=== PATIENT | male | born 1955 | race Caucasian/White ===

== ENCOUNTER 2024-09-22 20:07 | Emergency (ER) | payer MEDICARE ==
[~2024-09-22] VITALS: Ht 185.4 cm; Wt 108.9 kg
[2024-09-22] MEDS: acetaMINOPHEN 500 MG TABLET PO ONE (20:22)
[2024-09-22] MEDS: teTANUS/diphthERIA TOXOID [ADULT] 0.5 ML VIAL IM ONE (20:30)
--- NOTE | 2024-09-22 21:02 | HMCIMG ---
CT HEAD/BRAIN W/O CONTRAST INDICATION: fall TECHNIQUE: CT HEAD/BRAIN W/O CONTRAST. CT was performed with one or more of the following dose reduction techniques: Automated exposure control, adjustment of the mA and/or kV according to the patient's size, or use of the iterative reconstruction technique. Comparison: None FINDINGS: Cerebral atrophy seen. Nonspecific periventricular and subcortical white matters changes are noted likely representing small vessel ischemic changes. No midline shift or herniation. No extra axial collection. No acute intracranial bleed. There is a thickened left maxillary and bilateral ethmoid sinuses. Left periorbital soft tissue swelling is noted. IMPRESSION: Diffuse atrophy. No acute intracranial bleed is seen. Nonspecific white matter changes Left periorbital soft tissue swelling.
[2024-09-22] MEDS ORDERED: CLIN-141 PO (21:45)
--- NOTE | 2024-09-22 21:46 | ERN ---
General Chief Complaint: Head Injury Stated Complaint: FALL, HEAD INJURY Time Seen by MD: 20:09 Source: patient History of Present Illness Initial Comments 69-year-old male coming in to be evaluated after he had a mechanical fall earlier today. He states that walking out of a bar he tripped and landed on the floor hitting himself in the left upper eyelid with the glasses. He states he did not lose consciousness. Allergies: Coded Allergies: Penicillins (Unverified Allergy, Unknown, 09/22/24) Past Medical History Past Medical History: TIA Past Surgical History: None ROS Dictation CONSTITUTIONAL: No chills, no fever, no weakness, no diaphoresis, no malaise. HEAD/FACE: No signs of trauma. EENT: No eye pain, no blurred vision, no tearing, no double vision, no ear pain, no ear discharge, no nose pain, no nasal congestion, no throat pain, no throat swelling, no mouth pain. RESPIRATORY: No cough, no orthopnea, no SOB, no stridor, no wheezing. CARDIOVASCULAR: No chest pain, no edema, no palpitations, no syncope. GASTROINTESTINAL/ABDOMINAL: No abdominal pain, no constipation, no diarrhea, no nausea, no vomiting. GENITOURINARY: No abnormal discharge, no dysuria, no frequent urination, no hematuria. No complaints of pain in the genitals. MUSCULOSKELETAL: No back pain, no gout, no joint pain, no joint swelling, no muscle pain, no muscle stiffness, no neck pain. INTEGUMENTARY: No change in color, no change in hair/nails, no dryness, lesion, no lumps, no rash. NEUROLOGICAL/PSYCH: No anxiety, not depressed, no emotional problem, no headache, no numbness, no pre-existing deficit, no history of seizures, no tremors, no weakness. HEMATOLOGIC/LYMPHATIC: Not anemic, no history of blood clots, no apparent bleeding, no bruising, glands not swollen. All Systems Negative, Except as Noted. Physical Exam Physical Exam Dictation VITAL SIGNS: Reviewed. GENERAL APPEARANCE: Alert, oriented x3, no acute distress, obese. HEAD AND FACE: Non-traumatic. EYES: PERRL, pink conjunctivas, eyelid no trauma, anterior chamber clear. EARS: Pinnas intact and no signs of trauma or erythema. Ear canals clear and no discharge. TMs no erythema. NOSE: No discharge, no bleeding. OROPHARYNX: Mouth normal, teeth no caries, tongue pink. Pharynx clear, no erythema. Tonsils no exudates, no abscesses noted. Mucous membrane moist. NECK: Supple, non-tender, no thyromegaly, no masses, no JVD, no bruits. BREAST: Deferred. CHEST: No tenderness, no crepitus, no paradoxical movement, no retractions. LUNGS: Clear, well-ventilated, symmetric, no rales, no wheezing, no rhonchi, no stridor, good breath sounds bilaterally. HEART: Regular rate, regular rhythm, no murmur, no gallops. VASCULAR: No peripheral edema. ABDOMEN: Soft, positive bowel sounds, nondistended, no guarding, nontender, no rebound, no masses no hepatomegaly, no splenomegaly, no Solomon's sign, no hernias. RECTAL: Deferred. GENITAL: Deferred. NEUROLOGICAL: Normal speech, gross motor function intact, gross sensory function intact. MUSCULOSKELETAL: Neck nontender, full range of motion, back nontender, full range of motion. EXTREMITIES: Nontender, full range of motion. SKIN: Color pink, dry, no turgor, no rash, lacerations 4 cm left upper eyelid, no abrasions, no contusions. LYMPHATICS: Deferred. Results Laboratory and Microbiology Labs Reviewed?: Yes EKG/XRAY/US/CT/MRI CT Scan Comment [id number] [id number] IMAGING REPORT Signed PATIENT: CAM OROURKE JR MR#: [id number] : 1955 SEX: M AGE: 69 LOCATION: [facility] ORDER 15 STATUS: [facility] REPORT#: [id number] SERVICE 11 REASON: fall ORDERING PHYSICIAN: RENAE CHA MD PROCEDURE: HEAD WO - CT HEAD/BRAIN W/O CONTRAST CT HEAD/BRAIN W/O CONTRAST INDICATION: fall TECHNIQUE: CT HEAD/BRAIN W/O CONTRAST. CT was performed with one or more of the following dose reduction techniques: Automated exposure control, adjustment of the mA and/or kV according to the patient's size, or use of the iterative reconstruction technique. Comparison: None FINDINGS: Cerebral atrophy seen. Nonspecific periventricular and subcortical white matters changes are noted likely representing small vessel ischemic changes. No midline shift or herniation. No extra axial collection. No acute intracranial bleed. There is a thickened left maxillary and bilateral ethmoid sinuses. Left periorbital soft tissue swelling is noted. IMPRESSION: Diffuse atrophy. No acute intracranial bleed is seen. Nonspecific white matter changes Left periorbital soft tissue swelling. DICTATED BY: PAULA ACEVEDO MD DATE: 09/22/242058 ELECTRONICALLY SIGNED BY: PAULA ACEVEDO MD DATE: 09/22/242101 [facility] MDM: Differential diagnosis: Fall, mechanical fall, left upper eyelid laceration, Patient is a 69-year-old male coming in to be evaluated after he had a mechanical fall. States he landed on the floor and caused a left upper eyelid laceration due to the glasses he was wearing. Laceration was anesthetized and cleaned using lidocaine 1% 5 mL. Good anesthesia achieved. Using Ethilon 5-0 three vertical mattress sutures were placed and three simple interrupted sutures placed. Good approximation hemostasis obtained. Patient will be discharged in stable condition. ED Course Orders Procedure Category Date Status Time Tetanus,Diphtheria PHA 09/22/24 Complete Tox [Adult] (Diphther 20:30 Acetaminophen 500mg PHA 09/22/24 Complete Tab (Tylenol 500mg T 20:30 Ct Head/Brain W/O CT 09/22/24 Resulted Contrast 20:12 Lidocaine Hcl 1% 20ml PHA 09/22/24 Complete Vial (Lidocaine Hc 21:25 Current Medications Medications (Trade) Dose Ordered Sig/Yvonne Route PRN Reason Start Time Stop Time Status Last Admin Dose Admin Acetaminophen (TYLenol 500MG TAB) 500 mg ONCE ONCE PO 09/22/24 20:30 09/22/24 20:31 DC 09/22/24 20:22 Lidocaine HCl (Lidocaine HCl 1% 20ml Vial) 20 ml STK-MED ONCE .ROUTE 09/22/24 21:25 09/22/24 21:25 DC Tetanus/ Diphtheria Toxoids Adsorbed (DiphthERIA-teTANUS TOXOID [ADULT]/ DECAVAC) 0.5 ml ONCE ONCE IM 09/22/24 20:30 09/22/24 20:31 DC 09/22/24 20:30 Vital Signs Date Time Temp Pulse Resp B/P (MAP) Pulse Ox O2 Delivery O2 Flow Rate FiO2 09/22/24 20:12 97.5 72 17 159/89 97 Room Air* 0 21 09/22/24 20:12 98.8 60 20 159/89 100 Room Air* 0 21 Laceration/Wound Repair Laceration/Wound Repair : Wound Location: face Wound Length (cm): 4 Wound's Depth, Shape: superficial Wound Explored: clean Irrigated w/ Saline (ccs): 100 Betadine Prep?: Yes Anesthesia: 1% Lidocaine Volume Anesthetic (ccs): 5 Wound Repaired With: sutures Suture Size/Type: 5:0 Number of Sutures: 9 Layer Closure?: Yes Sterile Dressing Applied?: Yes DX & DISP Disposition: Discharge Departure Impression: Primary Impression: Fall Additional Impression: Facial laceration Condition: Stable Scripts Clindamycin HCl (Clindamycin HCl) 300 Mg Capsule 1 CAP PO BID for 7 Days, #14 CAP 0 Refills Prov: RENAE CHA MD 09/22/24 Additional Instructions: FOLLOW-UP WITH PRIMARY CARE PROVIDER IN 1 TO 2 DAYS. TAKE MEDICATIONS DIRECTED HERE IN THE EMERGENCY ROOM. OKAY TO CONTINUE HOME MEDICATIONS UNLESS OTHERWISE DISCUSSED DURING YOUR VISIT IN THE EMERGENCY ROOM TODAY. RETURN TO YOUR NEAREST EMERGENCY ROOM IF SYMPTOMS WORSEN OR IF THERE IS NO IMPROVEMENT. CALL 911 IF YOU NEED IMMEDIATE ASSISTANCE. TAKE TYLENOL [id number] NE EDED AND IF NO CONTRAINDICATIONS ARE PRESENT. INCREASE ORAL HYDRATION. A WOUND CULTURE OR URINE CULTURE WAS ORDERED HERE IN THE EMERGENCY ROOM DEPARTMENT PLEASE FOLLOW-UP WITH PRIMARY CARE PROVIDER AND ADVISE THEM TO GET REPEAT PORTS FROM OUR FACILITY. IF YOU HAD ANY NURA WRAP/SPLINTS THAT WERE APPLIED HERE, PLEASE DO NOT REMOVE THEM UNTIL YOU SEE YOUR PRIMARY CARE OR SPECIALTY. Referrals: Referrals: SELF,REFERRAL (PCP) ANSELMO DAMON MD Time of Disposition: 21:44 RENAE CHA MD Sep 22, 2024 21:46
[2024-09-22] MEDS: LIDOCAINE HCL 1% 20 ML VIAL INJ SCH (21:48)
[2024-09-22] MEDS: LIDOCAINE HCL 1% 20 ML VIAL ONE (21:48)
[2024-09-22 21:50] VITALS: BP 150/88; PULSE 65; RESP 20; TEMP 98.4; O2SAT 100
--- NOTE | 2024-09-23 06:18 | EKG ---
[facility] Test Date: 2024-09-22 Test Time: 21:09:56 Pat Name: CAM OROURKE Department: ED Room: Gender: [place] Operator: [facility] : 1955 Requested By: RENAE CHA Order Number: [id number] Reading MD: Ree Dickey Measurements Intervals [place] Rate: 59 P: 40 VA: 210 QRS: 4 QRSD: 119 T: 64 QT: 410 QTc: 405 Interpretive Statements Sinus rhythm Nonspecific intraventricular conduction delay No previous ECG available for comparison Electronically Signed On 09-24-2024 08:12:18 HOME HEALTH CLINICAL LIAISON by Ree Dickey Please click the below link to view image of tracing.
== END 2024-09-22 21:54 | disposition home or self-care (01) ==
LOC: EDBD 20:07 → EDH 20:07
DX: S01.112A Laceration without foreign body of left eyelid and periocular area, initial encounter (principal); Z86.73 Personal history of transient ischemic attack (TIA), and cerebral infarction without residual deficits; Z88.0 Allergy status to penicillin; W01.198A Fall on same level from slipping, tripping and stumbling with subsequent striking against other object, initial encounter; Y93.01 Activity, walking, marching and hiking; Y92.59 Other trade areas as the place of occurrence of the external cause; Y99.8 Other external cause status
CPT/HCPCS: 12013; 70450; 90471; 90714; 93005; 99285